=== PATIENT | male | born 2000 | race Caucasian/White ===

== ENCOUNTER 2022-09-17 01:13 | Emergency (ER) | payer SELFPAY ==
[~2022-09-17] VITALS: Ht 175.3 cm; Wt 66.0 kg
[2022-09-17 01:54] VITALS: BP 127/91
== END 2022-09-17 02:50 | disposition left against medical advice (07) ==
LOC: ER 01:13
DX: Z53.21 Procedure and treatment not carried out due to patient leaving prior to being seen by health care provider (principal)